=== PATIENT | male | born 1975 | race Caucasian/White ===

== ENCOUNTER 2022-07-12 23:59 | Emergency (ER) | payer OTHER ==
[~2022-07-12] VITALS: Ht 172.7 cm; Wt 125.0 kg
[2022-07-13] MEDS ORDERED: LORazepam 1 MG tablet PO ONE ×4 (00:50→07:05)
--- NOTE | 2022-07-13 01:00 | NUR ---
ASSUMED CARE OF PTKumar BUTLER FROM BUSTOP WITH ANXIETY AND CHEST PAIN. ADMITS TO USING METH. AWAKE AND ALERT C/O ANXIETY. MD AWARE. WILL MONITOR.
[2022-07-13 01:01] LABS: ALANINE AMINOTRANSFERASE 85 U/L (12-78); ALBUMIN 3.9 G/DL (3.4-5.0); ALKALINE PHOSPHATASE 71 IU/L (46-116); ANION GAP 11 (8-16); ASPARTATE AMINO TRANSFERASE 52 U/L (10-37); BILIRUBIN,TOTAL 1.1 MG/DL (0.1-1.0); BLOOD UREA NITROGEN 15 MG/DL (7-18); BUN/CREATININE RATIO 13.3 (5.4-32.0); CALCIUM 8.5 MG/DL (8.5-10.1); CHLORIDE 103 MMOL/L (99-107); CREATININE 1.13 MG/DL (0.60-1.10); GLUCOSE 116 MG/DL (70-104); POTASSIUM 3.3 MMOL/L (3.5-5.1); SODIUM 139 MMOL/L (135-145); TOTAL CARBON DIOXIDE 24.8 MMOL/L (24-32); eGFR 70 ML/MIN
[2022-07-13 01:10] LABS: BASOPHILS # (AUTO) 0.1 X10'3 (0-0.2); BASOPHILS % (AUTO) 0.9 % (0-1); EOSINOPHILS # (AUTO) 0.1 X10'3 (0-0.9); EOSINOPHILS % (AUTO) 1.2 % (0-6); HEMATOCRIT 43.9 % (42.0-52.0); HEMOGLOBIN 15.1 g/dl (14.0-17.9); LYMPHOCYTES # (AUTO) 2.3 X10'3 (1.1-4.8); LYMPHOCYTES % (AUTO) 19.2 % (21-51); MEAN CORPUSCULAR HEMOGLOBIN 32.6 PG (27.0-31.0); MEAN CORPUSCULAR HGB CONC 34.5 g/dL (33.0-36.5); MEAN CORPUSCULAR VOLUME 94.6 FL (78-98); MEAN PLATELET VOLUME 9.8 FL (7.4-10.4); MONOCYTES # (AUTO) 0.8 X10'3 (0-0.9); NEUTROPHILS # (AUTO) 8.6 X10'3 (1.8-7.7); NEUTROPHILS % (AUTO) 71.7 % (42-75); PLATELET COUNT 217 X10'3 (140-440); RED BLOOD COUNT 4.64 X10'6 (4.70-6.10); RED CELL DISTRIBUTION WIDTH 13.6 % (11.5-14.5); WHITE BLOOD COUNT 11.9 X10'3 (4.5-11.0)
--- NOTE | 2022-07-13 04:00 | NUR ---
PT GIVEN 2ND LITER OF H20 PER MD.
[2022-07-13] MEDS ORDERED: normal saline 1000ML IV soln IVB ONE (05:35)
--- NOTE | 2022-07-13 06:14 | NUR ---
PER NEW IV PLACED TO GIVE IVF. PT CONT TO BE TACHYCARDIC
--- NOTE | 2022-07-13 06:28 | NUR ---
FIRST CONTACT WITH PT, FOUND HIGH FOWLERS IN BED PLAYING ON CELL PHONE. PT'S HR 110S, FLUID BOLUS INFUSING. PT AWAKE AND ALERT, MAEX4. PT IN NO DISTRESS. AWAITING RE-EVAL BY MD WHEN HR IS LOWER.
[2022-07-13] MEDS ORDERED: magnesium oxide 400mg tablet PO ONE (07:05)
--- NOTE | 2022-07-13 07:12 | NUR ---
THIRD TROP DRAWN
[2022-07-13] MEDS ORDERED: FLO0.4C PO (07:47)
[2022-07-13 08:02] VITALS: BP 118/93
== END 2022-07-13 08:00 | disposition home or self-care (01) ==
LOC: ER 23:59
DX: R07.89 Other chest pain (principal); F15.90 Other stimulant use, unspecified, uncomplicated; I10 Essential (primary) hypertension; R51.9 Headache, unspecified; J44.9 Chronic obstructive pulmonary disease, unspecified; F17.200 Nicotine dependence, unspecified, uncomplicated; Z72.89 Other problems related to lifestyle; Z56.0 Unemployment, unspecified; Z59.00 Homelessness unspecified; Z88.8 Allergy status to other drugs, medicaments and biological substances; Z79.899 Other long term (current) drug therapy
CPT/HCPCS: 36415; 71045; 80053; 83880; 84484; 85025; 93005; 99285; J7030

== ENCOUNTER 2022-07-15 10:56 | Emergency (ER) | payer OTHER ==
[~2022-07-15] VITALS: Ht 172.7 cm; Wt 113.6 kg
[~2022-07-15 10:56] MED LIST: FLO0.4C PO
[2022-07-15 11:21] VITALS: BP 121/73
[2022-07-15] MEDS ORDERED: ketorolac trometh inj. 60 MG/2 ML VIAL IM ONE (12:00)
[2022-07-15] MEDS ORDERED: IBUP-1986 PO (12:09)
== END 2022-07-15 12:48 | disposition home or self-care (01) ==
LOC: ER 10:56
DX: R07.89 Other chest pain (principal); M79.641 Pain in right hand; I10 Essential (primary) hypertension; J44.9 Chronic obstructive pulmonary disease, unspecified; F15.20 Other stimulant dependence, uncomplicated; Z88.5 Allergy status to narcotic agent; Z59.00 Homelessness unspecified; Z56.0 Unemployment, unspecified
CPT/HCPCS: 71045; 73130; 93005; 96372; 99284; J1885